=== PATIENT | male | born 2000 ===

== ENCOUNTER 2022-07-02 16:53 | Emergency (ER) | payer MEDICAID ==
[~2022-07-02] VITALS: Ht 180.3 cm; Wt 86.4 kg
[2022-07-02 16:59] VITALS: BP 153/100
== END 2022-07-02 20:20 | disposition left against medical advice (07) ==
LOC: ER 16:54
DX: H57.10 Ocular pain, unspecified eye (principal); Z53.21 Procedure and treatment not carried out due to patient leaving prior to being seen by health care provider